=== PATIENT | female | born 1990 | race Caucasian/White ===

== ENCOUNTER → 2016-08-10 | Outpatient (CLI) | payer BC ==
[~2016-08-10] MED LIST: PRENTAB26 PO; RANI150T3 PO
[2016-08-10 15:42] LABS: URINE APPEARANCE CLEAR (CLEAR); URINE COLOR DK YELLOW; URINE NITRITE NEG (NEG); URINE SPECIFIC GRAVITY 1.029 (1.000-1.030); UROBILINOGEN NEG (NEG)
[2016-08-10 16:00] LABS: MANUAL MICROSCOPIC REQUIRED? NO; REVIEW REQ? NO; URINE BILIRUBIN NEG (NEG)
== END | disposition home or self-care (01) ==
LOC: C.LABSPEC 14:59
PROVIDERS: ATTEND Obstetrics & Gynecology
DX: Z34.90 Encounter for supervision of normal pregnancy, unspecified, unspecified trimester (principal)

== ENCOUNTER → 2016-08-24 | Outpatient (CLI) | payer BC ==
[2016-08-24 17:33] LABS: BASO % 0.2 %; BASO ABS # 0.02 K/uL (0-0.2); COMPLETE YES; EOS % 1.3 %; HEMATOCRIT 36.5 % (37-47); IG% 0.3 %; MEAN CELL VOLUME 89.5 fL (80-100); MEAN CORPUSCULAR HEMOGLOBIN 31.4 pg (25-34); MEAN CORPUSCULAR HGB CONC 35.1 g/dl (32-36); MEAN PLATELET VOLUME 11.4 fL (7.4-10.4); MONO % 6.5 %; NEUT % 76.7 %; PLATELET COUNT 246 K/uL (130-400); RED BLOOD COUNT 4.08 M/uL (4.2-5.4); WHITE BLOOD COUNT 12.66 K/uL (4.8-10.8)
[2016-08-27 01:28] LABS: CHLAMYDIA TRACH RNA*** NOT DETECTED (NOT DETECTED); GC (NEIS GONORRHOEAE)RNA** NOT DETECTED (NOT DETECTED)
== END | disposition home or self-care (01) ==
LOC: C.LAB1850 16:27
PROVIDERS: ATTEND Obstetrics & Gynecology
DX: Z34.90 Encounter for supervision of normal pregnancy, unspecified, unspecified trimester (principal)

== ENCOUNTER → 2016-10-15 | Outpatient (CLI) | payer BC ==
[2016-10-15 10:46] LABS: BASO % 0.1 %; BASO ABS # 0.01 K/uL (0-0.2); COMPLETE YES; EOS % 1.1 %; HEMATOCRIT 36.6 % (37-47); IG% 0.1 %; LYMPH % 17.2 %; LYMPH ABS # 1.36 K/uL (1.2-3.4); MEAN CELL VOLUME 89.7 fL (80-100); MEAN CORPUSCULAR HEMOGLOBIN 30.6 pg (25-34); MEAN CORPUSCULAR HGB CONC 34.2 g/dl (32-36); MEAN PLATELET VOLUME 11.2 fL (7.4-10.4); NEUT % 75.5 %; PLATELET COUNT 230 K/uL (130-400); RED BLOOD COUNT 4.08 M/uL (4.2-5.4); WHITE BLOOD COUNT 7.89 K/uL (4.8-10.8)
[2016-10-15 11:34] LABS: GTGD 50 Grams
== END | disposition home or self-care (01) ==
LOC: C.LAB1850 09:12
PROVIDERS: ATTEND Obstetrics & Gynecology
DX: Z34.02 Encounter for supervision of normal first pregnancy, second trimester (principal)

== ENCOUNTER → 2017-01-01 | Outpatient (CLI) | payer BC ==
[2017-01-01 10:42] LABS: HEMATOCRIT 34.3 % (37-47)
[2017-01-01 11:26] LABS: URINE APPEARANCE CLEAR (CLEAR); URINE BILIRUBIN NEG (NEG); URINE COLOR YELLOW; URINE EPITHELIAL CELL AUTO >30 /lpf (0-5); URINE NITRITE NEG (NEG); URINE PH 5.5 (4.5-7.5); URINE SPECIFIC GRAVITY 1.021 (1.000-1.030); UROBILINOGEN NEG (NEG)
[2017-01-01 11:27] LABS: MANUAL MICROSCOPIC REQUIRED? NO; REVIEW REQ? NO
[2017-01-01 12:28] LABS: GTGD 50 Grams
== END ==
LOC: C.LAB1850 09:38
PROVIDERS: ATTEND Obstetrics & Gynecology
DX: Z34.02 Encounter for supervision of normal first pregnancy, second trimester (principal)

== ENCOUNTER 2017-02-13 12:56 | Outpatient (CLI) | payer BC ==
[~2017-02-13] VITALS: Ht 165.1 cm; Wt 108.0 kg
[2017-02-13] MEDS ORDERED: PRENTAB26 PO (13:13)
[2017-02-13] MEDS ORDERED: RANI150T3 PO (13:14)
[2017-02-13 13:15] VITALS: Ht 165.1 cm; Wt 108.0 kg
--- NOTE | 2017-02-13 15:36 | DIAGNOSTIC IMAGING REPORT ---
BIOPHYSICAL PROFILE CLINICAL HISTORY: category 2 NST COMPARISON STUDY: No previous studies for comparison. FINDINGS: A single viable intrauterine gestation is noted on transabdominal sonography. breathing, tone and movement were normal. Amniotic fluid index is at the lower limits of normal, measuring 6.7 cm. Presentation was cephalic. heart rate was normal at 150 bpm. IMPRESSION: 1. Normal biophysical profile of 8 of 8. Low normal amniotic fluid index of 6.7 cm. 2. Normal heart rate of 150 bpm. Electronically signed by: Austin Kirkpatrick M.D. 02/13/2017 3:35 PM Dictated Date/Time: 02/13/2017 3:32 PM
== END 2017-02-13 16:12 | disposition home or self-care (01) ==
LOC: C.OPB 12:56 → C.LD 12:56 → C.OPB 16:12
PROVIDERS: ATTEND Obstetrics & Gynecology
DX: O36.5930 Maternal care for other known or suspected poor fetal growth, third trimester, not applicable or unspecified (principal); Z3A.34 34 weeks gestation of pregnancy

== ENCOUNTER → 2017-02-23 | Outpatient (CLI) | payer BC | END | disposition home or self-care (01) | LOC: C.LABSPEC 11:08 | PROVIDERS: ATTEND Obstetrics & Gynecology | DX: O09.93 Supervision of high risk pregnancy, unspecified, third trimester (principal) ==

== ENCOUNTER 2017-03-11 19:03 | Outpatient (CLI) | payer BC ==
[~2017-03-11] VITALS: Ht 165.1 cm; Wt 112.3 kg
[2017-03-11 19:48] VITALS: Ht 165.1 cm; Wt 112.3 kg
== END 2017-03-11 20:05 | disposition home or self-care (01) ==
LOC: C.OPB 19:03 → C.LD 19:03 → C.OPB 20:05
PROVIDERS: ATTEND Obstetrics & Gynecology
DX: O36.5930 Maternal care for other known or suspected poor fetal growth, third trimester, not applicable or unspecified (principal); Z3A.38 38 weeks gestation of pregnancy

== ENCOUNTER 2017-03-12 07:37 | Inpatient (IN) | payer BC ==
[~2017-03-12] VITALS: Ht 165.1 cm; Wt 112.3 kg
[2017-03-12] MEDS ORDERED: LACTATED RINGER'S 1000ML 1,000 ML IV PRN (07:41)
[2017-03-12] MEDS ORDERED: LACTATED RINGER'S 1000ML 500 ML IV PRN ×2 (07:41→12:46)
[2017-03-12 07:58] VITALS: Ht 165.1 cm; Wt 112.3 kg
[2017-03-12 08:16] LABS: HEMATOCRIT 35.6 % (37-47); MEAN CELL VOLUME 90.4 fL (80-100); MEAN CORPUSCULAR HGB CONC 34.3 g/dl (32-36); MEAN PLATELET VOLUME 10.8 fL (7.4-10.4); PLATELET COUNT 236 K/uL (130-400); RED BLOOD COUNT 3.94 M/uL (4.2-5.4); WHITE BLOOD COUNT 10.31 K/uL (4.8-10.8)
[2017-03-12] MEDS: LACTATED RINGER'S 1000ML 1,000 ML IV SCH ×3 (08:26→14:54)
[2017-03-12] MEDS: OXYTOCIN 30 UNITS/500ML NSS IV PRN ×2 (08:29→16:26)
[2017-03-12] MEDS ORDERED: CALCIUM CARBONATE 500 MG CHEWABLE PO PRN (08:30)
[2017-03-12] MEDS: RANITIDINE HCL 150 MG TAB PO SCH (11:00)
[2017-03-12] MEDS ORDERED: EpHEDrine SULFATE INJ 50 MG/ML AMP ONE (11:38)
[2017-03-12] MEDS ORDERED: BUPIVACAINE 0.25% 30 ML VIAL ONE (11:38)
[2017-03-12] MEDS ORDERED: FENTANYL 2MCG/ML ROPIV 1.25MG/ML 100ML BAG EPI ONE (11:39)
[2017-03-12] MEDS ORDERED: FENTANYL CITRATE INJ 50 MCG/1 ML 2 ML VIAL ONE (11:39)
[2017-03-12] MEDS ORDERED: NALOXONE HCL INJ 1 MG in SODIUM CHLORIDE 0.9% 1000ML 1,000 ML IV PRN (12:46)
[2017-03-12] MEDS ORDERED: FENTANYL 2MCG/ML ROPIV 1.25MG/ML 100ML BAG EPI PRN (13:00)
[2017-03-12] MEDS ORDERED: ONDANSETRON INJ 2 MG/ML 2 ML VIAL IV PRN (13:00)
[2017-03-12] MEDS ORDERED: PROMETHAZINE HCL INJ 25 MG in SODIUM CHLORIDE 0.9% 50ML 50 ML IV PRN (13:00)
[2017-03-12] MEDS ORDERED: DiphenhydrAMINE HCL 50 MG/ML VIAL IV PRN (13:00)
[2017-03-12] MEDS ORDERED: NALBUPHINE HCL INJ 10 MG/ML AMP IV PRN (13:00)
[2017-03-12] MEDS ORDERED: EpHEDrine SULFATE INJ 50 MG/ML AMP IV PRN (13:00)
[2017-03-12] MEDS ORDERED: NALOXONE HCL INJ 0.4 MG/1 ML VIAL/CARP IV PRN (13:00)
[2017-03-12] MEDS ORDERED: LACTATED RINGER'S 1000ML 1,000 ML IV SCH (19:56)
[2017-03-12] MEDS ORDERED: CITRIC ACID/SODIUM CITRATE 15 ML UDC ONE (19:59)
[2017-03-12] MEDS ORDERED: CITRIC ACID/SODIUM CITRATE 15 ML UDC PO ONE (20:00)
[2017-03-12] MEDS ORDERED: CEFAZOLIN IV 2,000 MG in SYRINGE 0 ML IV ONE (20:15)
[2017-03-12] MEDS ORDERED: MORPHINE SULFATE PF 2MG/2ML SYR ONE (20:50)
--- NOTE | 2017-03-12 21:03 | HISTORY & PHYSICAL EXAMINATION ---
DATE OF ADMISSION: 03/12/2017 HISTORY OF PRESENT ILLNESS: Gena was in induction of 03/12/2017 for growth restriction and she was 38 weeks and 3 days. Her cervix was unfavorable, a cervical May was placed the night before by Dr. Arnold. She was 4+ cm in the morning, Pitocin was started, her membranes ruptured spontaneously. She received an epidural and Pitocin was able to bring her contractions to adequate Glennie units using an IUPC. However, she never progressed past 5 cm, -1 station. She started to have repeated late decels. At this stage, I recommended section. We had waited 4 hours with no change and the patient agrees. HISTORY: AC less than 3rd percentile, small baby. This is her first . PAST MEDICAL HISTORY: Healthy. PAST SURGICAL HISTORY: No major surgeries. MEDICATIONS: Prenatals. SOCIAL HISTORY: Nonsmoker, nondrinker. FAMILY HISTORY: Noncontributory. REVIEW OF SYSTEMS: Negative. PHYSICAL EXAMINATION: VITAL SIGNS: Stable. She is afebrile. CHEST: Clear. CARDIOVASCULAR: Normal rate and rhythm. No audible murmur. ABDOMEN: Gravid. CERVIX: 5 cm, -1. IMPRESSION AND PLAN: Reviewed option of continuing labor; however, did not recommend this. We have observed and given her adequate trial of labor with failure to descend and dilate, with some repeated late decels. Discussed risks, including bleeding, infection, injury to bowel, bladder, ureter or vessels, deep vein thrombosis and pulmonary embolus. Discussed increased infection risk with labor and also with ruptured membranes. MARGARET
[2017-03-12] MEDS ORDERED: BENZOCAINE 20% AER SPR 82.5 GM CAN EXT PRN (21:15)
[2017-03-12] MEDS ORDERED: MAGNESIUM HYDROXIDE SUSP 30 ML UDC PO PRN (21:15)
[2017-03-12] MEDS ORDERED: SENNA 8.6 MG TAB PO PRN (21:15)
[2017-03-12] MEDS ORDERED: LANOLIN OINT EXT PRN ×2 (21:15)
[2017-03-12] MEDS ORDERED: SUPERCREAM 0.870 % 15GM JAR EXT PRN (21:15)
[2017-03-12] MEDS ORDERED: HYDROCORTISONE ACETATE 25 MG SUPP PR PRN (21:15)
--- NOTE | 2017-03-12 21:16 | [facility] Post Operative Brief Note ---
Immediate Operative Summary Operative Date Mar 12, 2017. Pre-Operative Diagnosis Failure to progress. Repetitive decelerations Post-Operative Diagnosis The same Procedure(s) Performed Low segment transverse section Surgeon Sada Supervisor Beam Department Surgeon(s) Kristina Cruz Estimated Blood Loss 600 mL Findings Normal pelvic anatomy Specimens Cord gases Drains May catheter Anesthesia epidural Complication(s) None Disposition L&D
[2017-03-12] MEDS ORDERED: LIDOCAINE/EPINEPHRINE 2% 1:200,000 20 ML SDV ONE (21:17)
[2017-03-12] MEDS ORDERED: ONDANSETRON INJ 2 MG/ML 2 ML VIAL ONE (21:17)
[2017-03-12] MEDS ORDERED: PHENYLEPHRINE HCL INJ 10 MG/ML VIAL ONE (21:17)
[2017-03-12] MEDS ORDERED: OXYTOCIN INJ 20 UNITS in LACTATED RINGER'S 1000ML 1,000 ML IV SCH (21:30)
[2017-03-12] MEDS ORDERED: MoRPHine SULFATE PF 1 MG/ML 10 ML AMP/VIAL EPI PRN (21:45)
[2017-03-12] MEDS ORDERED: MoRPHine SULFATE 2 MG/ML CARP IV PRN (21:45)
[2017-03-12] MEDS ORDERED: CONTINUE MEDICATION ONE (21:45)
[2017-03-12] MEDS ORDERED: ACETAMINOPHEN 1000 MG/100 ML IV IV ONE (21:45)
[2017-03-12] MEDS ORDERED: NO NARCOTICS OR SEDATIVES SCH (21:45)
--- NOTE | 2017-03-12 21:48 | Anesthesia Procedure Note ---
Anesthesia Epidural Removal Nt Date & Time Mar 12, 2017 at 21:48 Vital Signs Pain Intensity: 0.0 Notes Mental Status: alert / awake / arousable, participated in evaluation Nausea / Vomiting: adequately controlled Pain: adequately controlled Airway Patency, RR, SpO2: stable & adequate BP & HR: stable & adequate Hydration State: stable & adequate Neuraxial Anesthesia: was administered Anesthetic Complications: no major complications apparent, pt satisfied with anesthetic care Epidural: removed without complications, with tip intact
--- NOTE | 2017-03-12 22:53 | OPERATIVE REPORT ---
DATE OF OPERATION: 03/12/2017 PREOPERATIVE DIAGNOSIS: Failure to progress, repetitive decelerations. POSTOPERATIVE DIAGNOSIS: Same. PROCEDURE: Low segment transverse section. SURGEON: Dr. Tomlin. SYSTEM ARCHITECT: Katia Cruz RN. ESTIMATED BLOOD LOSS: 600 mL FINDINGS: Normal pelvic anatomy. SPECIMENS: Cord gases. DRAINS: May catheter. ANESTHETIC: Epidural. COMPLICATIONS: None. DISPOSITION: Admit to labor and delivery. DESCRIPTION OF PROCEDURE: Gena had her epidural increased to allow section. She was placed in a supine position with leftward tilt. May catheter had been placed by nursing and IV Ancef given preoperatively. Skin area tested with pickups with teeth and found to be adequate. Scalpel used to make a Pfannenstiel incision through the skin through subcutaneous fat to the fascia and the midline fascia was dissected laterally with curved Mayos and then superiorly and inferiorly away from the rectus muscles with curved Mayos. Rectus muscle split. Peritoneal cavity entered in a superior location bluntly and then peritoneal opening expanded to allow exposure. Bladder retractor placed. Metzenbaums used to dissect away the bladder flap. Bladder retractor repositioned. Scalpel used to make a low transverse incision. Entry was done bluntly. Opening of the uterine incision was extended with the extractor operator's finger. Baby was delivered by flexing the head which was in the pelvis and then pressure on the abdomen. Fluid was clear. There was no nuchal cord. Mouth and then nares were suctioned. Gentle traction was used. Live vigorous male infant. Cord clamped. Cord blood obtained. Cord gases obtained. Placenta removed. IV Pitocin started. Uterus exteriorized. We ensured all placenta removed with a moist lap. Uterus was closed in a 2-layer fashion, running 0 Monocryl, and a second reinforcing on 0 Monocryl, first layer locked, there were no extensions noted. Uterine tone improved with Pitocin. After generous irrigation and suction, uterus was placed back in the peritoneal cavity, hemostasis excellent. Fascia closed with 0 Vicryl, subcutaneous fat irrigated and closed with 3-0 Vicryl, skin closed with 4-0 subcuticular Monocryl and Steri-Strips. Urine was the same light pink color that it was prior to surgery as it was after surgery. I attest to the content of the Intraoperative Record and any orders documented therein. Any exception s are noted below.
[2017-03-12] MEDS: KETOROLAC TROMETHAMINE 30 MG/ML VIAL IV. PRN (23:37)
--- NOTE | 2017-03-12 23:39 | Anesthesiology Progress Note ---
Anesthesia Post Op Note Date & Time Mar 12, 2017 at 23:39 Vital Signs Pain Intensity: 0.0 Notes Mental Status: alert / awake / arousable, participated in evaluation Nausea / Vomiting: adequately controlled Pain: adequately controlled Airway Patency, RR, SpO2: stable & adequate BP & HR: stable & adequate Hydration State: stable & adequate Neuraxial Anesthesia: was administered, sensory block is resolving Anesthetic Complications: no major complications apparent
[2017-03-12 23:55] VITALS: O2SAT 97
[2017-03-13] VITALS (18 sets, daily range): BP systolic 101–127; BP diastolic 65–84; PULSE 65–93; TEMP 36.7–37.1; O2SAT 92–99
[2017-03-13] MEDS ORDERED: LACTATED RINGER'S 1000ML 1,000 ML IV SCH (06:00)
--- NOTE | 2017-03-13 07:11 | Progress Note ---
Subjective Mar 13, 2017. Subjective conversation w/ patient, physical exam, lab review Voiding: meade catheter in place Diet Tolerance: Regular Diet Lochia: Small Feeding Type: Breast Feeding Objective Vital Signs Date Time Temp Pulse Resp B/P (MAP) Pulse Ox O2 Delivery O2 Flow Rate FiO2 03/13/17 07:00 18 96 03/13/17 06:00 18 99 03/13/17 05:00 16 96 03/13/17 04:00 16 97 03/13/17 03:15 37.0 65 16 110/69 (83) 95 Room Air 03/13/17 03:00 16 95 03/13/17 02:00 18 98 03/13/17 01:10 36.9 70 18 119/72 (88) 96 Room Air 03/13/17 01:10 18 96 03/13/17 00:10 97 Room Air 03/13/17 00:10 18 97 03/13/17 00:10 36.9 76 18 120/72 (88) 97 Room Air 03/12/17 23:55 97 Room Air Physical Exam General Appearance: WELL-APPEARING Respiratory/Chest: lungs clear Abdomen: non tender Fundus: Firm Incision Description: Clean, Dry & Intact Extremities: no calf tenderness Laboratory Results Last 24 Hours Test 03/12/17 07:56 03/13/17 07:02 White Blood Count 10.31 K/uL Red Blood Count 3.94 M/uL Hemoglobin 12.2 g/dL Hematocrit 35.6 % Mean Corpuscular Volume 90.4 fL Mean Corpuscular Hemoglobin 31.0 pg Mean Corpuscular Hemoglobin Concent 34.3 g/dl RDW Standard Deviation 43.9 fL RDW Coefficient of Variation 13.4 % Platelet Count 236 K/uL Mean Platelet Volume 10.8 fL Assessment and Plan Post- Day#: 1 Continue Routine Care: Patient doing well has not ambulated yet Meade catheter to be removed this morning continue current care
[2017-03-13 07:23] LABS: BASO % 0.1 %; BASO ABS # 0.01 K/uL (0-0.2); COMPLETE YES; EOS % 0.3 %; HEMATOCRIT 28.5 % (37-47); IG% 0.2 %; LYMPH % 12.1 %; MEAN CELL VOLUME 91.3 fL (80-100); MEAN CORPUSCULAR HEMOGLOBIN 31.4 pg (25-34); MEAN CORPUSCULAR HGB CONC 34.4 g/dl (32-36); MEAN PLATELET VOLUME 10.5 fL (7.4-10.4); MONO % 5.9 %; NEUT % 81.4 %; PLATELET COUNT 193 K/uL (130-400); RED BLOOD COUNT 3.12 M/uL (4.2-5.4); WHITE BLOOD COUNT 14.86 K/uL (4.8-10.8)
[2017-03-13] MEDS: SIMETHICONE 80 MG CHEW PO SCH ×4 (07:54→19:13)
[2017-03-13] MEDS: DOCUSATE SODIUM 100 MG CAP PO SCH ×2 (07:55→19:13)
[2017-03-13] MEDS: KETOROLAC TROMETHAMINE 30 MG/ML VIAL IV. PRN (07:55)
[2017-03-13] MEDS: RANITIDINE HCL 150 MG TAB PO SCH ×2 (07:55→19:14)
[2017-03-13] MEDS: PRENATAL VITAMIN TAB PO SCH (07:55)
[2017-03-13] MEDS ORDERED: DC INTRASPINAL MORPHINE SCH (12:00)
[2017-03-13] MEDS ORDERED: MEPERIDINE HCL 50 MG/ML CARP IV PRN ×2 (12:01)
[2017-03-13] MEDS ORDERED: DiphenhydrAMINE HCL 50 MG/ML VIAL IV PRN (12:01)
[2017-03-13] MEDS ORDERED: ZOLPIDEM TARTRATE 5 MG TAB PO PRN (12:01)
[2017-03-13] MEDS ORDERED: OXYCODONE/ACETAMINOPHEN 5-325 TAB PO PRN (12:01)
[2017-03-13] MEDS ORDERED: PROMETHAZINE HCL INJ 25 MG in SODIUM CHLORIDE 0.9% 50ML 50 ML IV PRN (12:01)
[2017-03-13] MEDS ORDERED: KETOROLAC TROMETHAMINE 30 MG/ML VIAL IV. PRN (12:01)
[2017-03-13] MEDS ORDERED: ONDANSETRON INJ 2 MG/ML 2 ML VIAL IV PRN (12:01)
[2017-03-13] MEDS: OXYCODONE/ACETAMINOPHEN 5-325 TAB PO PRN ×2 (14:45→21:07)
[2017-03-13] MEDS: IBUPROFEN 600 MG TAB PO PRN ×2 (14:45→21:07)
[2017-03-13] MEDS ORDERED: BISACODYL 5 MG TABEC PO ONE (22:00)
[2017-03-14] MEDS: OXYCODONE/ACETAMINOPHEN 5-325 TAB PO PRN ×4 (07:32→20:00)
[2017-03-14] MEDS: DOCUSATE SODIUM 100 MG CAP PO SCH ×2 (07:33→19:58)
[2017-03-14] MEDS: SIMETHICONE 80 MG CHEW PO SCH ×4 (07:33→20:00)
[2017-03-14] MEDS: PRENATAL VITAMIN TAB PO SCH (07:33)
[2017-03-14] MEDS: IBUPROFEN 600 MG TAB PO PRN ×4 (07:33→20:01)
[2017-03-14] MEDS: RANITIDINE HCL 150 MG TAB PO SCH ×2 (07:34→20:00)
[2017-03-14 07:38] VITALS: BP 112/73; PULSE 75; TEMP 36.5
--- NOTE | 2017-03-14 08:05 | Progress Note ---
Subjective Mar 14, 2017. Subjective conversation w/ patient, physical exam Ambulation: ambulating normally Voiding: no voiding problems Passing Gas: Yes Diet Tolerance: Regular Diet Lochia: Small Feeding Type: Breast Feeding Pain: using pain meds Objective Vital Signs Date Time Temp Pulse Resp B/P (MAP) Pulse Ox O2 Delivery O2 Flow Rate FiO2 03/14/17 07:38 36.5 75 18 112/73 03/13/17 23:05 Room Air 03/13/17 23:05 36.8 93 18 127/84 03/13/17 19:10 36.7 77 77 101/65 03/13/17 15:55 37.1 81 16 105/71 03/13/17 15:55 95 Room Air 03/13/17 12:00 18 98 03/13/17 11:55 36.9 73 18 102/67 03/13/17 11:00 18 96 03/13/17 10:00 18 92 03/13/17 09:00 18 93 03/13/17 08:05 18 94 03/13/17 08:05 94 Room Air 03/13/17 08:05 36.9 76 18 108/72 Physical Exam General Appearance: WELL-APPEARING, WD/WN, NO APPARENT DISTRESS Respiratory/Chest: lungs clear Cardiovascular: regular rate, rhythm Abdomen: non tender, soft Fundus: Firm, Relation to Umbilicus (2 down) Incision Description: Clean, Dry & Intact (steris) Extremities: non-tender Assessment and Plan Post- Day#: 2 Continue Routine Care: stable, doing well, routine care.
--- NOTE | 2017-03-14 09:11 | Discharge Instructions ---
Discharge Instructions Date of Service Mar 14, 2017. Admission Reason for Admission: Induction Discharge Discharge Diagnosis / Problem: after delivery Discharge Goals Goal(s): Routine recovery after Medications Continue Dispensed Medications: supercream, dermaplast, tucks, lansinoh Activity Recommendations Activity Limitations: as noted below . Instructions / Follow-Up Instructions / Follow-Up ACTIVITY RECOMMENDATIONS: * Gradual return to full activity over the next 2-3 weeks. * No lifting - nothing heavier than baby over the next 2-3 weeks. * Do not engage in vigorous exercise, sexual activity or sports until cleared by your physician. * Do not drive or operate any motorized equipment until cleared by your physician. * You may shower/bathe daily. MEDICATIONS: For discomfort or pain, you may use Acetaminophen (Tylenol), Ibuprofen (Advil), or Naproxen (Aleve) following the package directions. For constipation you may use Colace following the package directions. BREAST CARE: If you are not breast feeding: * Wear a supportive bra 24 hours a day for one to two weeks. * Avoid stimulating your breasts and nipples as much as possible during the first few weeks after delivery. * When taking a shower, have the warm water hit your back, not breasts. * When your breasts feel full, apply ice packs. Usually three to four times a day helps ease the discomfort. * Take a mild pain medication (Tylenol / Motrin) when you are uncomfortable. If breast feeding: * Use breast milk to lubricate nipples. Lansinoh cream may be used for sore nipples. You do not need to remove cream prior to breast feeding. If using a different brand of cream, check the label for directions regarding removal of cream prior to nursing. * Wear a supportive bra. * If having problems with breasts or breast feeding, call a business analysis consultant or your health care provider. SPECIAL CARE INSTRUCTIONS: When you are discharged from the hospital, it is important for you to follow the instructions listed below: * During the first week at home, you should be able to care for yourself and your baby. In addition, the usual light household activities are encouraged. * Limit your activities to the way you feel. Do not try to clean the house or move furniture. Be sensible. * If you actively engage in sports and have done so up until the time of your delivery, you may resume these activities as soon as you feel able. This may take up to one month or even longer. Use good judgment. * Continue to take your vitamins for at least six weeks after the of your baby. * Your diet need not be limited unless you were on a special diet before your delivery. Breast-feeding mothers need around 2500 calories per day and at least 64-80 ounces of fluid per day (8 to 10 glasses). * You should eat foods from the four major food groups. Crash diets or fad diets are to be avoided. Eating lean meats, fresh fruits and vegetables, low-fat dairy products, high fiber foods and a regular exercise program, will help you get back to your pre- weight without putting your health at risk. * Constipation is sometimes a problem after delivery. Take a mild laxative as needed. If breast feeding, Milk of Magnesia is acceptable to use. You may use a suppository or Fleets enema. * A daily shower or tub bath is suggested. Wash incision daily with warm soapy water and pat dry. It doesn't need to be covered unless drainage is present. * A bloody vaginal discharge will usually continue until around four weeks . A small amount of bleeding may continue for as long as six weeks. Vaginal discharge changes from the bright red bleeding after delivery to pink then brownish and finally yellowish-pink before becoming white and disappearing. * Bleeding may increase with activity. Your first period may come in 4-8 weeks. If you are breast feeding, your period may be delayed even longer. * [place]ouster (sex) can begin whenever both you and your partner feel comfortable and do not have any form of genital infection. It is recommended that you wait at least six weeks for internal and external healing to occur. If you have questions, please talk to your health care practitioner. A condom should be used to prevent infection and . * Foreplay, gentle intercourse and lubrication is very important the first several times to prevent pain. A water-based lubricant such as K-Y jelly or Astroglide may be used. * If you have RH negative blood and your baby is RH positive, you will receive RHOGAM by injection prior to discharge. The nurse will give you a card to keep with you that has the date and place that you received RHOGAM after delivery. * During your care, you had a Rubella screen done to check for the presence of rubella antibodies in your blood. If your test was negative, you will receive a Rubella vaccine prior to discharge. This vaccine may cause a fever, soreness at the injection site and flu-like symptoms. If these symptoms persist, notify your health care practitioner. is not advised for one month after a Rubella vaccine. * Verbalizes understanding of car seat law as reviewed with patient nursing. * Car Seat hand-out given and reviewed with patient by nursing. * Shaken baby information reviewed with patient by nursing. Call you doctor if: * Heavy bleeding (saturating several pads an hour) or passing clots the size of your fist. * A fever >101 degrees F (38.3 degrees C) on two occasions four hours apart and /or chills. * Unusual pain in the pelvic or vaginal areas. * Call the doctor for any increased redness, drainage or swelling around the incision and any pain unrelieved by prescribed pain medication. * "Baby Blues" lasting longer than two weeks. If you have any questions or concerns, call your health care practitioner at . FOLLOW UP VISIT: * Please call the office at to schedule a 6 week examination. It is important you keep this appointment. It is important for you to make arrangements for either yearly or twice yearly check-ups thereafter. Current Hospital Diet Patient's current hospital diet: Regular OB Diet Discharge Diet Recommended Diet: Regular Diet Procedures Procedures Performed: Section Pending Studies Studies pending at discharge: no Medical Emergencies . Who to Call and When: Medical Emergencies: If at any time you feel your situation is an emergency, please call [phone] immediately. . Non-Emergent Contact Non-Emergency issues call your: Cr[facility] . . "Provider Documentation" section prepared by Jayde Huitron. . VTE Core Measure Inpt VTE Proph given/why not?: SCD's [place] Drug Monitoring Program Search Results: patient reviewed within database, no issues identified
[2017-03-14 15:30] VITALS: BP 129/84; PULSE 62; TEMP 37
[2017-03-14] MEDS ORDERED: BISACODYL 10 MG SUPP PR PRN (22:45)
[2017-03-15] VITALS: BP 106/70; PULSE 53; TEMP 36.3
[2017-03-15] MEDS: OXYCODONE/ACETAMINOPHEN 5-325 TAB PO PRN ×2 (00:12→08:40)
[2017-03-15] MEDS: IBUPROFEN 600 MG TAB PO PRN ×2 (00:13→08:40)
--- NOTE | 2017-03-15 07:39 | Progress Note ---
Subjective Mar 15, 2017. Subjective conversation w/ patient, physical exam Ambulation: ambulating normally Voiding: no voiding problems Passing Gas: Yes Diet Tolerance: Regular Diet Lochia: Small Feeding Type: Breast Feeding Pain: pain well controlled. Objective Vital Signs Date Time Temp Pulse Resp B/P (MAP) Pulse Ox O2 Delivery O2 Flow Rate FiO2 03/15/17 01:17 Room Air 03/15/17 00:00 36.3 53 20 106/70 (82) Room Air 03/14/17 15:30 Room Air 03/14/17 15:30 37.0 62 20 129/84 (99) Room Air 03/14/17 07:45 Room Air Physical Exam General Appearance: WELL-APPEARING, WD/WN, NO APPARENT DISTRESS Respiratory/Chest: lungs clear Cardiovascular: regular rate, rhythm Abdomen: non tender, soft Fundus: Firm, Relation to Umbilicus (2 down) Incision Description: Clean, Dry & Intact (with steris) Extremities: non-tender Assessment and Plan Post-, Post-Op Day#: 3 Continue Routine Care: stable, will d/c home, instructions reviewed. f/u 6 wk pp check.
[2017-03-15] MEDS ORDERED: MTR600X PO (07:46)
[2017-03-15] MEDS ORDERED: OXYC-57 PO (07:46)
[2017-03-15] MEDS: PRENATAL VITAMIN TAB PO SCH (08:39)
[2017-03-15] MEDS: SIMETHICONE 80 MG CHEW PO SCH (08:39)
[2017-03-15] MEDS: DOCUSATE SODIUM 100 MG CAP PO SCH (08:39)
[2017-03-15] MEDS: RANITIDINE HCL 150 MG TAB PO SCH (08:39)
[2017-03-15 08:45] VITALS: BP 120/83; PULSE 67; TEMP 36.3; O2SAT 98
[2017-03-15 12:50] VITALS: BP_DIAS 83; PULSE 67; TEMP 36.3
--- NOTE | 2017-03-19 08:33 | DISCHARGE SUMMARY ---
HOSPITAL COURSE: Gena had a on 03/12/2017. Operative note dictated. The procedure was uncomplicated. COURSE IN HOSPITAL: By postop day #3, she met discharge criteria. SUBJECTIVE: At that time, she was ambulating, passing gas, voiding well, had minimal bleeding, no extremity pain. Pain was well controlled and tolerating an oral diet. PHYSICAL EXAMINATION: VITAL SIGNS: Stable. She was afebrile. CHEST: Clear. CARDIOVASCULAR: Normal rate and rhythm. No audible murmur. ABDOMEN: Benign. Nontender. Incision clean, dry and intact. EXTREMITIES: Negative. IMPRESSION AND PLAN: Hemoglobin was 9.8. The patient discharged home on Percocet and Motrin and told to follow up in the office with any concerns.
== END 2017-03-15 12:50 | disposition home or self-care (01) | DRG 765 ==
LOC: C.LD 07:37 → C.OBG 23:54 → UNDODISIN 03-13 16:00
PROVIDERS: ADMIT Obstetrics & Gynecology; ATTEND Obstetrics & Gynecology
PROC: 3E033VJ Introduction of Other Hormone into Peripheral Vein, Percutaneous Approach (ICD-10-PCS; 2017-03-12)
PROC: 10D00Z1 Extraction of Products of Conception, Low, Open Approach (ICD-10-PCS; principal; 2017-03-12 19:59)
DX: O76 Abnormality in fetal heart rate and rhythm complicating labor and delivery (principal); O36.5930 Maternal care for other known or suspected poor fetal growth, third trimester, not applicable or unspecified; O32.4XX0 Maternal care for high head at term, not applicable or unspecified; O62.1 Secondary uterine inertia; Z3A.38 38 weeks gestation of pregnancy; Z37.0 Single live birth